=== PATIENT | male | born 1970 | race Caucasian/White ===

== ENCOUNTER → 2017-06-01 | Outpatient (CLI) | payer MEDICARE ==
[2017-06-01 13:33] LABS: Basophils % (A) 1 %; Eosinophils % (A) 1 %; HCT 47.7 % (39.0-53.0); HGB 15.1 gm/dL (13.0-17.5); Lymphocytes # (A) 1.1 k/uL (1.0-4.8); Lymphocytes % (A) 23 %; MCH 28.9 pg (25.0-35.0); MCHC 31.6 g/dL (31.0-37.0); MCV 91.5 fL (80.0-100.0); Mean Platelet Volume 7.5; Monocytes # (A) 0.2 k/uL (0-1.0); Monocytes % (A) 4 %; Neutrophils # (A) 3.6 k/uL (1.3-7.7); Neutrophils % (A) 70 %; Platelet Count 215 k/uL (150-450); RBC 5.21 m/uL (4.30-5.90); RDW 14.2 % (11.5-15.5); WBC 5.1 k/uL (3.8-10.6)
[2017-06-01 13:41] LABS: Potassium 4.8 mmol/L (3.5-5.1)
== END | disposition home or self-care (01) ==
LOC: LABPAT 12:27
PROVIDERS: ATTEND Orthopaedic Surgery
DX: Z01.818 Encounter for other preprocedural examination (principal); Z01.812 Encounter for preprocedural laboratory examination; S43.431D Superior glenoid labrum lesion of right shoulder, subsequent encounter
CPT/HCPCS: 36415; 80051; 85025; 93005

== ENCOUNTER 2017-06-08 07:41 | Day surgery (SDC) | payer MEDICARE, OTHER ==
[2017-05-30 23:30] VITALS: BMI 22.4
--- NOTE | 2017-06-07 10:31 | HP ---
HISTORY AND PHYSICAL CHIEF COMPLAINT: Right shoulder pain. HISTORY OF PRESENT ILLNESS: The patient is a 47-year-old right-hand dominant male on permanent disability who presents after injuring his right shoulder on 01/02/2017. He fell in his backyard, dislocating his shoulder. He notes pain, limited motion, and weakness ever since. He feels like the shoulder is unstable. He denies previous problems. PAST MEDICAL HISTORY: Significant for bipolar disorder. PAST SURGICAL HISTORY: Significant for previous knee surgery. CURRENT MEDICATIONS: Depakote. He has allergies to PENICILLIN and CODEINE. FAMILY HISTORY: Negative. SOCIAL HISTORY: Negative for current tobacco or alcohol use. 16 POINT REVIEW OF SYSTEMS: Otherwise reviewed and is noncontributory. On examination, the patient is approximately 6 foot 2, 175 pounds of mesomorphic habitus. HEENT exam is nonfocal. Neck is supple. On examination of his right shoulder, he is tender about the anterior glenohumeral joint and subacromial space. He has mild subacromial crepitus. Active range of motion, forward elevation 75 degrees, external rotation with arm at side 70 degrees, internal rotation to the buttock. Passively, I am able to forward elevate him to 110 degrees. Impingement test, Neer test, and Speed tests are positive. Apprehension test is positive. Suppression test is positive. Motor strength is 4/5 for external rotation and abduction. His distal neurovascular exam otherwise appears intact in the right upper extremity. MRI report right shoulder 05/01/2017 shows an anterior labral tear along with a Hill- Sachs lesion. There is increased signal involving the supraspinatus insertion. IMPRESSION: 1. Right shoulder anterior labral tear with instability. 2. Possible partial-thickness rotator cuff tear. RECOMMENDATIONS: I talked to the patient at length regarding his condition and treatment options. At this point, he remains quite symptomatic despite adequate rest. After a thorough discussion, he opts to proceed with surgery. We will plan to proceed with arthroscopic evaluation with possible anterior labral repair in addition to possible rotator cuff debridement/repair. We will likely perform that as an outpatient procedure. Risks and benefits were discussed at length in layman's terms. MMODL / IJN: [id number] /
[~2017-06-08 07:41] MED LIST: DEXAMETHASONE SOD PHOSPHATE 10 MG/ML 1 ML VIAL IV ONE; LACTATED RINGERS 1,000 ML IV SCH; MIDAZOLAM 2 MG/2 ML VIAL IV PRN; MORPHINE SULFATE 4 MG/ML SYRINGE IV PRN; ONDANSETRON 4 MG/2 ML VIAL IVP ONE; SCOPOLAMINE 1.5MG/72HR PATCH TRANSDERM ONE; ceFAZolin IN SWFI 2 GM/20 ML SYRINGE IVP ONE
--- NOTE | 2017-06-08 09:23 | P.ONQ ---
Anesthesiology Proc Note - PNB - Peripheral Nerve Block Performed Right Interscalene Indication: Acute Post-Operative Pain, Requested by physician (Dr Mullins) Sedation Type: Sedate with meaningful contact maintained Preparation: Sterile Prep Position: Supine Catheter: None Needle Types: Other (see comment) (Sally) Needle Size: 50mm (2") Needle Gauge: 20 Technique: Ultrasound (14ccd 0.5% Ropivacaine, 14cc Lidocaine 1% with 1:100,000 epi) Blood Aspirated: No Pain Paresthesia on Injection Noted: No Resistance on Injection: Normal Events: Uneventful and Well Tolerated
[2017-06-08] MEDS ORDERED: PROPOFOL 10 MG/ML 20 ML VIAL IV ONE (09:54)
[2017-06-08] MEDS ORDERED: LIDOCAINE 2%-EPI 1:100,000 20 ML VIAL ONE (09:54)
[2017-06-08] MEDS ORDERED: SUCCINYLCHOLINE CHLORIDE 100 MG/5 ML SYR IV ONE (09:54)
[2017-06-08] MEDS ORDERED: fentaNYL (PF) 50 MCG/ML 2 ML AMP ONE (09:54)
[2017-06-08] MEDS ORDERED: ROPIVACAINE 5 MG/ML 30 ML VIAL ONE (09:54)
[2017-06-08] MEDS ORDERED: LIDOCAINE 1% INJ 10MG/ML (20 ML MDV) ONE (09:54)
[2017-06-08] MEDS ORDERED: MIDAZOLAM 2 MG/2 ML VIAL ONE (09:54)
[2017-06-08] MEDS ORDERED: EPINEPHrine (PF) 1 ML in SODIUM CHLORIDE 0.9% IRRIGATIO 3,000 ML IRRIGATION ONE ×8 (10:24→10:25)
--- NOTE | 2017-06-08 11:34 | P.OP ---
Date of Procedure: 06/08/17 Preoperative Diagnosis: Right shoulder instability with recent dislocation Postoperative Diagnosis: Same Procedure(s) Performed: Right shoulder arthroscopic anterior labral repair/rotator cuff debridement Implants: 3 mm push lock anchor 2 Anesthesia: CALLIE regional Surgeon: Sixto Mullins Security Escort #1: Abel Yoon Estimated Blood Loss (ml): 10 Pathology: none sent Condition: stable Disposition: PACU Indications for Procedure: The patient's a 47-year-old male presents after dislocating his shoulder recently with persistent pain and instability. A discussion of the risks and benefits of operative intervention versus continued conservative measures was made with the patient. He opted to proceed with surgery. Operative risks to include infection, neurovascular injury, development of blood clots, possible recurrent instability and need for subsequent procedures was discussed. Informed consent was obtained. Operative Findings: Anterior labral tear 2:00 to 5:00, partial thickness rotator cuff tear of the supraspinatus, Hill-Sachs lesion Description of Procedure: The patient was brought to the operating room, and after induction of general anesthesia was placed in a beachchair position. The bony prominences were appropriately padded. I examined the right shoulder. He did have significant anterior instability. The right upper extremity was prepped and draped in normal fashion. The bony outlines the acromion, distal clavicle, and coracoid process were outlined with a skin marker. The glenohumeral joint was inflated with 50 mL of saline utilizing a spinal needle from posterior approach. A posterior portals made through a 5 mm skin incision 1 cm medial and inferior to the posterior lateral border acromion. A blunt trocar was used to easily into the joint. An anterior portal was made entering the joint above the subscapularis tendon lateral to the coracoid process. The subscapularis appeared to be intact. There was an anterior labral tear from the 2:00 to 5 o' clock position. The posterior labrum was intact. The biceps anchor was intact. There appeared to be a small Hill-Sachs lesion with a small bony fragment involving the supraspinatus. There was a small partial-thickness tear of the supraspinatus as well. The bony fragment was removed with a motorized maddy. The rotator cuff was debrided back to stable base with a motorized shaver. The remaining rotator cuff was stable and intact. Attention was then paid towards the anterior labrum. A threaded cannula was placed anteriorly. The anterior labrum was mobilized with an elevator. The anterior glenoid was decorticated utilizing a motorized bur. A suture passer was then used to pass 2 Arthrex labral tapes planning on a superior capsular shift along with labral repair. 2 drill holes were made in the anterior labrum and the appropriate push lock anchors were placed tensioning the tape. After placement of these I felt I had adequate denominational of the anterior labrum. I did not feel the need for a third anchor. Arthroscope was placed into the subacromial space. No significant rotator cuff pathology was noted. The arthroscope was then removed. The portals were closed with simple 3-0 nylon suture. A sterile dressing was applied in addition to a sling. The patient was awoken from general anesthesia and transferred to recovery room in good condition. Blood loss was estimated at 10 mL. No complications were incurred.
[2017-06-08 11:39] VITALS: TEMP 97.8
[2017-06-08 12:55] VITALS: PULSE 83
[2017-06-08 13:18] VITALS: BP 153/98; RESP 18
== END 2017-06-08 13:47 | disposition home or self-care (01) ==
LOC: OR 07:41
PROVIDERS: ATTEND Orthopaedic Surgery
DX: M75.101 Unspecified rotator cuff tear or rupture of right shoulder, not specified as traumatic (principal); S42.201A Unspecified fracture of upper end of right humerus, initial encounter for closed fracture; F31.9 Bipolar disorder, unspecified; Z88.5 Allergy status to narcotic agent; Z88.0 Allergy status to penicillin; Z79.891 Long term (current) use of opiate analgesic; Z79.899 Other long term (current) drug therapy
CPT/HCPCS: 29827; 64415; C1713 ×3; J2250; J1100; J0690; J2405; J0171; J2001; J3010; J2795; J0330; J2704

== ENCOUNTER → 2017-08-23 | Outpatient (CLI) | payer MEDICARE, OTHER ==
[2017-08-23 11:59] LABS: Basophils % (A) 1 %; Eosinophils # (A) 0.1 k/uL (0-0.7); Eosinophils % (A) 2 %; HCT 48.5 % (39.0-53.0); HGB 15.4 gm/dL (13.0-17.5); Lymphocytes # (A) 1.5 k/uL (1.0-4.8); Lymphocytes % (A) 27 %; MCH 28.6 pg (25.0-35.0); MCHC 31.8 g/dL (31.0-37.0); MCV 90.1 fL (80.0-100.0); Mean Platelet Volume 7.1; Monocytes # (A) 0.3 k/uL (0-1.0); Monocytes % (A) 6 %; Neutrophils # (A) 3.4 k/uL (1.3-7.7); Neutrophils % (A) 63 %; Platelet Count 235 k/uL (150-450); RBC 5.38 m/uL (4.30-5.90); RDW 13.7 % (11.5-15.5); WBC 5.4 k/uL (3.8-10.6)
[2017-08-23 12:19] LABS: Potassium 4.2 mmol/L (3.5-5.1)
== END | disposition home or self-care (01) ==
LOC: LABPAT 11:27
PROVIDERS: ATTEND Orthopaedic Surgery
DX: Z01.812 Encounter for preprocedural laboratory examination (principal); M75.01 Adhesive capsulitis of right shoulder
CPT/HCPCS: 36415; 80051; 85025

== ENCOUNTER 2017-08-31 06:19 | Day surgery (SDC) | payer MEDICARE, OTHER ==
[2017-08-24 10:07] VITALS: BMI 24.6
--- NOTE | 2017-08-30 10:07 | HP ---
HISTORY AND PHYSICAL CHIEF COMPLAINT: Right shoulder pain and stiffness. HISTORY OF PRESENT ILLNESS: The patient is a 47-year-old right-hand dominant male on disability who presents with right shoulder pain and stiffness after undergoing arthroscopic anterior labral repair on June 08, 2017. He did not attend formal therapy as prescribed in the postoperative phase. He notes stiffness and limited range of motion. He also notes night symptoms. PAST MEDICAL HISTORY: Significant for bipolar disorder. PAST SURGICAL HISTORY: Significant for right shoulder arthroscopic anterior labral repair in addition to previous total knee arthroplasty. CURRENT MEDICATIONS: Depakote. ALLERGIES: He has allergies to PENICILLIN and CODEINE. FAMILY HISTORY: Family history is noncontributory. SOCIAL HISTORY: Negative for current tobacco or alcohol use. REVIEW OF SYSTEMS: Sixteen-point review of systems otherwise reviewed and is noncontributory. PHYSICAL EXAMINATION: On examination, the patient is approximately 6 feet 2 inches, 175 pounds of mesomorphic habitus. HEENT exam is nonfocal. Neck is supple. On examination of his right shoulder, there is no warmth or erythema. The previous portals are well healed. He has marked guarding. Passive forward elevation is 80 degrees. External rotation with arm at side is 50 degrees. His distal neurovascular exam appears intact in the right upper extremity. MRI report of the right shoulder shows evidence of biceps tendinosis. The anterior labrum appears to be intact. The previous Hill-Sachs deformity is noted. IMPRESSION: Status post right shoulder arthroscopic Bankart repair with development of adhesive capsulitis/synovitis. RECOMMENDATIONS: I talked to the patient at length regarding his treatment options. At this point, he opts to proceed with manipulation under anesthesia with possible arthroscopic debridement. Risks and benefits were discussed at length in layman's terms. We will likely perform that as an outpatient procedure. MMODL / IJN: [id number] /
[~2017-08-31 06:19] MED LIST changes: +HYDROmorphone 0.5 MG/0.5 ML SYRINGE IVP PRN; +LIDOCAINE 1% 20 ML VIAL (10MG/ML) FOR IV START INTRADERMA PRN; +MORPHINE SULFATE 2 MG/ML SYRINGE IV PRN; -MORPHINE SULFATE 4 MG/ML SYRINGE IV PRN
[2017-08-31] MEDS ORDERED: fentaNYL (PF) 50 MCG/ML 2 ML AMP IV ONE (07:21)
[2017-08-31] MEDS ORDERED: METOPROLOL TARTRATE 5 MG/5 ML VIAL IVP ONE (07:34)
[2017-08-31] MEDS ORDERED: PHENYLEPHRINE-0.9% NACL SYG 1 MG/10 ML SYRINGE ONE (08:12)
[2017-08-31] MEDS ORDERED: LIDOCAINE 2%-EPI 1:100,000 20 ML VIAL ONE (08:12)
[2017-08-31] MEDS ORDERED: LIDOCAINE 1% INJ 10MG/ML (20 ML MDV) ONE (08:12)
[2017-08-31] MEDS ORDERED: ROPIVACAINE 5 MG/ML 30 ML VIAL ONE (08:12)
[2017-08-31] MEDS ORDERED: KETOROLAC 30 MG/ML 1 ML VIAL ONE (08:12)
[2017-08-31] MEDS ORDERED: SUCCINYLCHOLINE CHLORIDE 100 MG/5 ML SYR IV ONE (08:12)
[2017-08-31] MEDS ORDERED: PROPOFOL 10 MG/ML 20 ML VIAL IV ONE (08:12)
[2017-08-31] MEDS ORDERED: fentaNYL (PF) 50 MCG/ML 2 ML AMP ONE (08:12)
--- NOTE | 2017-08-31 09:05 | P.OP ---
Date of Procedure: 08/31/17 Preoperative Diagnosis: Right shoulder adhesive capsulitis/synovitis status post arthroscopic Bankart repair Postoperative Diagnosis: Same Procedure(s) Performed: Manipulation under anesthesia right shoulder/arthroscopic partial synovectomy Anesthesia: abdelrahman LEDESMA Surgeon: Sixto Mullins Cloth Bin Packer #1: Abel Yoon Estimated Blood Loss (ml): 10 Pathology: none sent Condition: stable Disposition: PACU Indications for Procedure: The patient's a 47-year-old male who presents after undergoing previous arthroscopic Bankart repair with persistent pain and stiffness in his right shoulder. He did not comply with postoperative rehabilitation and did not go to therapy. A discussion of the risks and benefits of manipulation under anesthesia with arthroscopic evaluation was made with the patient. He opted to proceed with surgery. Operative risks to include infection, neurovascular injury, development of blood clots, persistence of stiffness and possible need for subsequent procedures was discussed. Informed consent was obtained. Operative Findings: As below Description of Procedure: Patient was brought to the operating room, and after induction of general anesthesia was placed in a beachchair position. The bony prominences were appropriately padded. I examined the right shoulder. I was able to externally rotate with the arm at side to 60. Forward flexion was somewhat limited and a moderate amount of adhesions were encountered during the gentle manipulation before obtaining full forward elevation. No gross glenohumeral instability was noted. The right upper extremity was then prepped and draped in normal fashion. The glenohumeral joint was inflated with 50 mL of saline utilizing a spinal needle from a posterior approach. A posterior portal was made through a 5 mm skin incision 1 cm medial and inferior to the posterior lateral border of the acromion. Diagnostic arthroscopy was performed. An anterior portal was made just lateral to the coracoid process entering the joint above the subscapularis tendon. He did have marked synovitis involving the rotator interval there was debrided with motorized shaver. The biceps and the biceps anchor appeared to be intact. The rotator cuff appeared to be intact on the articular surface. There was a Hill-Sachs lesion involving the greater tuberosity. This did not appear to engage. On inspection of the anterior labrum, the previous repair appeared to be intact. No significant cartilage injury involving humeral head or glenoid was noted. The posterior labrum was intact. The inferior recess was inspected. The posterior portion the rotator cuff appeared to be intact. The arthroscope was placed into the subacromial space. The rotator cuff appeared intact on the bursal surface. The arthroscope was then removed. The portals were closed with simple 4-0 nylon sutures. A sterile dressing was applied in addition to a sling. The patient was awoken from general anesthesia and transferred to recovery room in good condition. Blood loss was estimated 10 mL. No complications were incurred. Sponge and needle counts were correct at the end of the case.
[2017-08-31] MEDS ORDERED: IV FLUID CONTINUATION 1,000 ML IV ONE ×2 (09:17)
[2017-08-31 09:29] VITALS: TEMP 97.3
[2017-08-31] MEDS ORDERED: hydrALAZINE HCL 20 MG/ML 1 ML VIAL IVP ONE ×2 (09:48→10:18)
[2017-08-31 10:20] VITALS: RESP 18
[2017-08-31 11:04] VITALS: BP 146/89; PULSE 70
--- NOTE | 2017-09-01 11:34 | P.ONQ ---
Anesthesiology Proc Note - PNB - Peripheral Nerve Block Performed Right Interscalene Single Time Out Performed: Yes Procedure Start Time: : Procedure Stop Time: : Indication: Acute Post-Operative Pain, Requested by physician Sedation Type: Sedate with meaningful contact maintained Preparation: Sterile Prep Position: Supine Needle Gauge: 21 Technique: Ultrasound Injectate: 0.5% Ropivacaine (see comment for volume) (ropi .5% 30cc) Blood Aspirated: No Pain Paresthesia on Injection Noted: No Resistance on Injection: Normal Events: Uneventful and Well Tolerated
== END 2017-08-31 11:04 | disposition home or self-care (01) ==
LOC: OR 06:19
PROVIDERS: ATTEND Orthopaedic Surgery
DX: M75.01 Adhesive capsulitis of right shoulder (principal); Z98.890 Other specified postprocedural states; F31.9 Bipolar disorder, unspecified; Z79.891 Long term (current) use of opiate analgesic; Z79.899 Other long term (current) drug therapy; Z88.5 Allergy status to narcotic agent; Z88.0 Allergy status to penicillin; F17.220 Nicotine dependence, chewing tobacco, uncomplicated
CPT/HCPCS: 64415; 29820; J2250; J0360; J1100; J2405; J2001; J3010; J1885; J2795; J2370; J0330; J2704; J0690

== ENCOUNTER → 2022-02-24 | Outpatient (CLI) | payer MEDICARE, OTHER | END | disposition home or self-care (01) | LOC: LABWHC1 10:41 | PROVIDERS: ATTEND Psychiatry & Neurology Neurology | DX: Z01.812 Encounter for preprocedural laboratory examination (principal); Z20.822 Contact with and (suspected) exposure to COVID-19 | CPT/HCPCS: U0003; U0005 ==

== ENCOUNTER → 2022-05-02 | Outpatient (CLI) | payer MEDICARE, OTHER | END | disposition home or self-care (01) | LOC: LABWHC1 16:17 | PROVIDERS: ATTEND Internal Medicine | DX: Z01.818 Encounter for other preprocedural examination (principal); R94.31 Abnormal electrocardiogram [ECG] [EKG] | CPT/HCPCS: 36415; 93005 ==

== ENCOUNTER → 2022-06-07 | Outpatient (CLI) | payer MEDICARE, OTHER ==
[2022-06-07 19:49] LABS: ALT 40 U/L (10-49); AST 24 U/L (14-35); African American GFR (CKD) 116.1 (60.0-200.0); Albumin 4.6 g/dL (3.8-4.9); Albumin/Globulin Ratio 1.74 (1.60-3.17); Alkaline Phosphatase 77 U/L (41-126); BUN/Creat Ratio 10.14 Ratio (12.00-20.00); Blood Urea Nitrogen 8.5 mg/dL (9.0-27.0); Calcium 9.8 mg/dL (8.7-10.3); Carbon Dioxide 24.8 mmol/L (20.0-27.5); Chloride 99 mmol/L (96-109); Globulin 2.7 g/dL (1.6-3.3); Glucose 96 mg/dL (70-110); Non-African American GFR(CKD) 100.2 (60.0-200.0); Potassium 4.5 mmol/L (3.5-5.5); Sodium 137 mmol/L (135-145); Total Bilirubin <0.15 mg/dL (0.30-1.20); Total Protein 7.3 g/dL (6.2-8.2)
[2022-06-07 20:15] LABS: HCT 46.3 % (39.6-50.0); HGB 14.8 g/dL (13.0-17.0); MCH 29.3 pg (27.0-32.0); MCV 91.7 fL (80.0-97.0); NRBC Per 100 WBC 0 /100 WBCS (0.0-0.0); Platelet Count 210 X 10*3/uL (140-440); RBC 5.05 X 10*6/uL (4.40-5.60); RDW 13.1 % (11.5-14.5); WBC 6.39 X 10*3/uL (4.50-10.00)
[2022-06-07 21:35] LABS: Appearance,Urine Clear (Clear); Bilirubin,Urine Negative (Negative); Blood,Urine Negative (Negative); Color,Urine Yellow (Yellow); Ketones,Urine Trace mg/dL (Negative); Nitrite,Urine Negative (Negative); PH, Urine 6.5 (5.0-8.0); Specific Gravity,Urine 1.019 (1.001-1.030); Urobilinogen,Urine 0.2 (0.2,1.0)
== END | disposition home or self-care (01) ==
LOC: LABWHC1 12:33
PROVIDERS: ATTEND Orthopaedic Surgery
DX: M22.8X9 Other disorders of patella, unspecified knee (principal); Z96.651 Presence of right artificial knee joint
CPT/HCPCS: 36415; 80053; 81003; 83036; 85027; 86850; 86900; 86901; 87070; 87086

== ENCOUNTER → 2023-08-09 | Outpatient (CLI) | payer MEDICARE | END | disposition home or self-care (01) | LOC: LABPAT 11:02 | PROVIDERS: ATTEND Orthopaedic Surgery | DX: Z01.812 Encounter for preprocedural laboratory examination (principal); Z22.322 Carrier or suspected carrier of Methicillin resistant Staphylococcus aureus; M19.011 Primary osteoarthritis, right shoulder | CPT/HCPCS: 87070 ==

== ENCOUNTER 2023-09-04 08:29 | Day surgery (SDC) | payer MEDICARE ==
--- NOTE | 2023-09-03 08:49 | P.HPOR ---
History of Present Illness H&P Date: 09/03/23 Chief Complaint: Right shoulder pain The patient is a 53-year-old [id number] male who presents with right shoulder pain for the past several years worsening recently. He is having a difficult time with any attempted overhead use. He is having significant night symptoms. He's tried medications in addition to injections without much relief. He notes severe daily pain that limits him. He has a history of a little right shoulder arthroscopy in 2018. Review of Systems As per HPI Past Medical History Past Medical History: Hypertension, Osteoarthritis (OA) Additional Past Medical History / Comment(s): RLS, rt shoulder pain, History of Any Multi-Drug Resistant Organisms: None Reported Past Surgical History: Adenoidectomy, Joint Replacement, Orthopedic Surgery, Tonsillectomy Additional Past Surgical History / Comment(s): right knee replaced x 3. RT SHOULDER SX 05/2017 Past Anesthesia/Blood Transfusion Reactions: No Reported Reaction Smoking Status: Never smoker - Past Family History Mother Family Medical History: No Reported History Father Family Medical History: Coronary Artery Disease (CAD) Brother(s) Additional Family Medical History / Comment(s): Pacemaker Sister(s) Additional Family Medical History / Comment(s): pacemaker Medications and Allergies Home Medications Medication Instructions Recorded Confirmed Type Divalproex Sodium [Depakote] 1,500 mg PO HS 05/30/17 08/30/23 History Desmopressin [Ddavp] 0.2 mg PO HS 08/30/23 08/30/23 History QUEtiapine [SEROquel] 200 mg PO HS 08/30/23 08/30/23 History amLODIPine BESYLATE/BENAZEPRIL 1 each PO HS 08/30/23 08/30/23 History [Amlodipine-Benazepril 5-10 mg] oxyCODONE-APAP 10-325MG [Percocet 1 tab PO Q8HR PRN 08/30/23 08/30/23 History 10-325 mg] rOPINIRole HCL [Requip XL] 2 mg PO HS 08/30/23 08/30/23 History Allergies Allergy/AdvReac Type Severity Reaction Status Date / Time codeine Allergy jittery Verified 08/30/23 14:31 Penicillins Allergy turns Verified 08/30/23 14:31 teeth yellow Physical Examination - Shoulder right Appearance: effusion Tenderness with palpation: anterior, bicipital groove Pain: with abduction, with forward flexion ROM: forward flexion: 40 degrees ROM: internal rotation: 0 ROM: external rotation: 30 degrees Tests: internal impingement tests: positive, external impingment tests: positive Results The patient is a well-developed well-nourished male approximately 6 foot 2, 220 pounds of mesomorphic habitus. HEENT exam is nonfocal, neck supple. He has marked guarding of the right shoulder. He has moderate subacromial crepitus. Impingement test, Neer test, and speed tests are positive. His distal neurovascular exam appears intact in the right upper shoulder. - Diagnostic results Shoulder x-ray: image reviewed (3 views of the right shoulder obtained in the office show severe glenohumeral joint space narrowing. Previous Hill-Sachs deformity is noted.) Assessment and Plan Assessment: Right severe glenohumeral joint osteoarthrosis Plan: I talked with the patient at length regarding his condition along with treatment options. At this point is quite limited because of pain related his right shoulder osteoarthrosis despite previous conservative measures. After a thorough discussion he opts to proceed with surgery. We'll plan to proceed with right total shoulder arthroplasty. Risks and benefits were discussed at length in layman's terms.
[~2023-09-04 08:29] MED LIST changes: -DEXAMETHASONE SOD PHOSPHATE 10 MG/ML 1 ML VIAL IV ONE; -LACTATED RINGERS 1,000 ML IV SCH; -LIDOCAINE 1% 20 ML VIAL (10MG/ML) FOR IV START INTRADERMA PRN; -MIDAZOLAM 2 MG/2 ML VIAL IV PRN; -MORPHINE SULFATE 2 MG/ML SYRINGE IV PRN; -ONDANSETRON 4 MG/2 ML VIAL IVP ONE; -SCOPOLAMINE 1.5MG/72HR PATCH TRANSDERM ONE; +TRANEXAMIC 1,000 MG/100ML-NACL 1,000 MG in SALINE 1 100ML.BAG IVPB PRN; -ceFAZolin IN SWFI 2 GM/20 ML SYRINGE IVP ONE
[2023-09-04] MEDS: MELOXICAM 7.5 MG TAB PO PRN (09:25)
[2023-09-04] MEDS: ACETAMINOPHEN TAB 500 MG TAB PO PRN (09:25)
[2023-09-04] MEDS: ONDANSETRON 4 MG/2 ML VIAL IVP ONE (09:25)
[2023-09-04] MEDS: DEXAMETHASONE SOD PHOSPHATE 4 MG/ML 1 ML VIAL IV ONE (09:25)
[2023-09-04] MEDS: LACTATED RINGERS 1,000 ML IV ONE ×3 (09:30→15:58)
[2023-09-04] MEDS: MIDAZOLAM 2 MG/2 ML VIAL IVP ONE (09:33)
--- NOTE | 2023-09-04 09:48 | P.ANPRN ---
Procedure Note - Anesthesia - Nerve Block Performed Right Interscalene Single Time Out Performed: Yes Date of Procedure: 09/04/23 Procedure Start Time: :32 Procedure Stop Time: :40 Location of Patient: PreOp Indication: Acute Post-Operative Pain, Analgesia, Requested by Surgeon Sedation Type: Sedate with meaningful contact maintained Preparation: Sterile Prep Position: Sitting Catheter: None Needle Types: Pajunk Needle Gauge: 21 Ultrasound used to visualize needle placement: Yes Ultrasound used to observe medication spread: Yes Injectate: 0.5% Ropivacaine (see comment for volume) (Ropiv 20ml +decadron 4mg) Blood Aspirated: No Pain Paresthesia on Injection Noted: No Resistance on Injection: Normal Image Stored and Saved: Yes Events: Uneventful and Well Tolerated
[2023-09-04] MEDS ORDERED: TRANEXAMIC 1,000 MG/100ML-NACL PREMIX BAG ONE (12:40)
[2023-09-04] MEDS ORDERED: fentaNYL (PF) 50 MCG/ML 2 ML AMP ONE (12:40)
[2023-09-04] MEDS ORDERED: GLYCOPYRROLATE 0.2 MG/ML 2 ML VIAL ONE (12:40)
[2023-09-04] MEDS ORDERED: SUCCINYLCHOLINE CHLORIDE 200 MG/10 ML VIAL IV ONE (12:40)
[2023-09-04] MEDS ORDERED: PROPOFOL 10 MG/ML 20 ML VIAL IV ONE (12:40)
[2023-09-04] MEDS ORDERED: NEOSTIGMINE 1 MG/ML 10 ML VIAL ONE (12:40)
[2023-09-04] MEDS ORDERED: PHENYLEPHRINE 10 MG/ML VIAL ONE (12:40)
[2023-09-04] MEDS ORDERED: ROPIVACAINE 5 MG/ML 30 ML VIAL ONE (12:40)
[2023-09-04] MEDS ORDERED: DEXAMETHASONE SOD PHOSPHATE 4 MG/ML 1 ML VIAL ONE (12:40)
[2023-09-04] MEDS ORDERED: ROCURONIUM 10 MG/ML (5 ML VIAL) IV ONE (12:40)
[2023-09-04] MEDS: ceFAZolin 1,000 MG in SODIUM CHLORIDE 0.9% 1,000 ML IRRIGATION ONE (13:13)
[2023-09-04] MEDS ORDERED: HYDROmorphone 0.5 MG/0.5 ML SYRINGE IVP PRN (14:47)
[2023-09-04] MEDS ORDERED: hydrOXYzine pamoate 25 MG CAP PO PRN (14:47)
[2023-09-04] MEDS ORDERED: SENNOSIDES-DOCUSATE SODIUM 1 EACH TAB PO PRN (14:47)
[2023-09-04] MEDS ORDERED: HYDROmorphone 1 MG/ML 1 ML SYRINGE IVP PRN (14:47)
[2023-09-04] MEDS: LACTATED RINGERS 1,000 ML IV SCH (15:03)
--- NOTE | 2023-09-04 15:03 | P.OP ---
Date of Procedure: 09/04/23 Preoperative Diagnosis: Right severe glenohumeral joint osteoarthrosis Postoperative Diagnosis: Same Procedure(s) Performed: Right total shoulder arthroplasty Implants: [employer] size 10 press-fit humeral stem, size 10 metaphysis, 52 x 18 eccentric humeral head, 48 mm cemented central peg glenoid component. Anesthesia: abdelrahman LEDESMA Surgeon: Sixto Mullins Docketing Specialist #1: Rob Yadav Estimated Blood Loss (ml): 150 Pathology: none sent Condition: stable Disposition: PACU Indications for Procedure: The patient's a 53-year-old male presents with progressive right shoulder pain secondary to osteoarthrosis despite conservative measures. Risks and benefits of continued conservative measures versus operative intervention was made with patient. He opted to proceed with surgery. Operative risks to include infection, neurovascular injury, fracture, possible component loosening/failure and need for subsequent procedures was discussed. Informed consent was obtained. Operative Findings: As below Description of Procedure: The patient was brought to the operating room, and after induction of general anesthesia was placed in the beachchair position. The bony prominences were appropriately padded. The right upper extremity was prepped and draped in normal fashion. A deltopectoral incision was then made lateral to the coracoid process extending approximately 12 cm. The skin was incised sharply. Subcutaneous tissues were divided bluntly. Electrocautery was used for hemostasis. The deltopectoral interval was identified and the cephalic vein gently retracted laterally with the deltoid. Subdeltoid adhesions were bluntly dissected. A self-retaining retractor was placed. The clavipectoral fascia was opened and the conjoined tendon gently retracted medially. The upper one third of the pectoralis major was released to help facilitate exposure. The biceps was identified and the sheath was opened. The rotator interval was opened. The biceps was tenotomized and allowed to retract distally. The subscapularis was peeled off the lesser tuberosity and tagged with #2 Ethibond suture. The humeral head was then exposed releasing the capsule off the humeral neck. The shoulder was gently dislocated. A starting hole was made in the head in line with the humeral shaft. The shaft was reamed by hand up to 10 mm. There is good distal chatter. The cutting guide was placed planning on a cut flush with the rotator cuff insertion and 30 of retroversion. The cutting block was pinned in place. The humeral head cut was then made. This measured most appropriately at 52 x 18 mm. Residual inferior osteophytes were carefully removed flush with the mohegan cortical bone. A posterior glenoid retractor was placed. The glenoid was then exposed releasing the labrum from the [] o'clock position. Residual labral tissue was removed. The glenoid sized most appropriate 48 mm. A guidewire was then inserted planning on the appropriate version. The glenoid was reamed down to a bleeding bony surface. The central Peg hole was drilled. The alignment guide was placed in the peripheral peg holes drilled. The trial size 48 mm glenoid was placed and was fully seated. There was good anterior to posterior and inferior to superior fit. The trial component was removed. Pulsatile lavage was utilized. The bony surface was dried. The peripheral peg holes were then pressurized with cement utilizing a syringe. Excess cement was removed. A central peg glenoid was then placed and was fully seated. This was gently impacted. This was held in place until the cement had sufficiently hardened. Attention was then paid again towards preparing the proximal humerus. The appropriate broach was placed in 30 of retroversion and was fully seated. An eccentric 52 x 18 mm humeral head was placed. The shoulder was gently reduced. It was taken through a range of motion. It was felt to be stable in flexion and extension with internal and external rotation. I felt there was adequate oriental orthodox of soft tissue tension. The shoulder was gently dislocated. The trial components were then removed. A #2 Ethibond was placed laterally for reattachment of the subscapularis. The humeral stem was inserted in 30 of retroversion and was fully seated. There was good rotational stability. The eccentric 52 x 18mm humeral head was gently impacted. The shoulder was then gently reduced and taken through range of motion and was felt to be stable. Pulsatile lavage was utilized. Lesser tuberosity was reattached utilizing #2 Ethibond suture. The rotator interval was closed with #2 Ethibond suture. He had minimal drainage at this point therefore a deep drain was not placed. The deltopectoral interval was closed with interrupted 2-0 Vicryl sutures. The subcu tissues were reapproximated with interrupted 2-0 Vicryl sutures. The skin was reprepped with 3-0 subcuticular Prolene suture. Steri-Strips were applied. A sterile dressing was applied in addition to a sling. The patient was then awoken from general anesthesia and transferred to recovery room in good condition. Blood loss was estimated at 150 mL. No complications were incurred. Sponge and needle counts were correct at the end the case. Rob BARAJAS Docketing Specialist. The major composite case to include positioning, exposure, resection, implantation, and closure.
--- NOTE | 2023-09-04 15:33 | XR ---
EXAMINATION TYPE: XR shoulder limited RT DATE OF EXAM: 09/04/2023 COMPARISON: None HISTORY: Right shoulder arthroplasty TECHNIQUE: AP right shoulder FINDINGS: There is placement of a right humeral prosthesis. Acromioclavicular joint has mild degenera tive change. No acute fractures or dislocations of the shoulder. IMPRESSION: 1. No acute fracture post replacement
[2023-09-04] MEDS: oxyCODONE-APAP 10-325MG 1 EACH TAB PO PRN (16:57)
[2023-09-04] MEDS: CYCLOBENZAPRINE 5 MG TAB PO SCH (16:59)
[2023-09-04 17:15] LABS: Basophils % (A) 0 %; Eosinophils % (A) 0 %; HCT 42.8 % (39.0-53.0); HGB 13.2 gm/dL (13.0-17.5); Lymphocytes # (A) 0.7 k/uL (1.0-4.8); Lymphocytes % (A) 6 %; MCH 29.2 pg (25.0-35.0); MCHC 30.9 g/dL (31.0-37.0); MCV 94.6 fL (80.0-100.0); Mean Platelet Volume 7.7; Monocytes # (A) 0.3 k/uL (0-1.0); Monocytes % (A) 2 %; Neutrophils # (A) 10.2 k/uL (1.3-7.7); Neutrophils % (A) 91 %; Platelet Count 198 k/uL (150-450); RBC 4.52 m/uL (4.30-5.90); RDW 13.2 % (11.5-15.5); WBC 11.2 k/uL (3.8-10.6)
[2023-09-04] MEDS ORDERED: NON FORMULARY DRUG (Amlodipine Besylate/Benazepril [Amlodipine Besylate/Benazepril 5-10 Mg PO SCH (21:00)
--- NOTE | 2023-09-04 21:24 | P.CONS ---
History of Present Illness - Reason for Consult Consult date: 09/04/23 Medical management Requesting physician: Sixto Mullins - Chief Complaint Right shoulder surgery - History of Present Illness This is a pleasant 53-year-old patient who follows with Dr. Emeli Alvarez. Chronic stable medical condition include hypertension, restless leg syndrome, osteoarthritis, enuresis for which she takes DDAVP, Depakote for bipolar and Seroquel for insomnia. Patient has undergone repeat right total shoulder arthroplasty. Prior surgery was about 5 years ago. Postprocedure right arm in a sling. Pain is controlled. No nausea vomiting did tolerate some supper. Denies any cardiac history. Patient's fianc is in the room. Sitting up in bed. Review of systems: GEN.: None EYES: None HEENT: None NECK: None RESPIRATORY: None CARDIOVASCULAR: None GASTROINTESTINAL: None GENITOURINARY: None MUSCULOSKELETAL: [Joint pain LYMPHATICS: None HEMATOLOGICAL: None PSYCHIATRY: None NEUROLOGICAL: Nocturnal bedwetting e Social history: Lives with his figomez Avila. Patient is on Social Security. Just to tobacco and does marijuana. Physical examination: VITAL SIGNS: 98, 105, 20, 132 x 85, 96% room air GENERAL: BMI 26.4, sitting bed awake not in distress. EYES: Pupils equal. Conjunctiva celeste l. HEENT: External appearance of nose and ears normal, oral cavity grossly normal. NECK: JVD not raised; masses not palpable. HEART: First and second heart sounds are normal; no edema. LUNGS: Respiratory rate normal; clear to auscultation. ABDOMEN: Soft, nontender, liver spleen not palpable, no masses palpable. PSYCH: Alert and oriented x3; mood and affect celeste l. MUSCULOSKELETAL:No Clubbing/cyanosis;muscles-grossly intact. Right arm in a sling. Dressing on the right shoulder NEUROLOGICAL: Cranial nerves grossly intact; no facial asymmetry, power and sensation grossly intact. LYMPHATICS: No lymph nodes palpable in the axilla and neck INVESTIGATIONS, reviewed in the clinical context: September 04, 2023: White count 9.2 hemoglobin 13.2 platelets 198 June 07, 2021: White count 6.3 hemoglobin 14.8 potassium 4.5 creatinine 0.8 Assessment plan: -Right total shoulder arthroplasty Right arm in a sling -Restless leg syndrome Requip XL 2 mg nightly -Essential hypertension Amlodipine/benazepril/5-ten 1 tablet nightly -Chronic insomnia Seroquel 12 mg nightly -Bipolar disorder Depakote 1500 mg nightly -enuresis DDAVP 0.2 mg nightly Was discussed with the patient and the fianc at the bedside. Questions answ ered. Thank you Dr. Mullins Past Medical History Past Medical History: Hypertension, Osteoarthritis (OA) Additional Past Medical History / Comment(s): RLS, rt shoulder pain, History of Any Multi-Drug Resistant Organisms: None Reported Past Surgical History: Adenoidectomy, Joint Replacement, Orthopedic Surgery, Tonsillectomy Additional Past Surgical History / Comment(s): right knee replaced x 3. RT SHOULDER SX 05/2017 Past Anesthesia/Blood Transfusion Reactions: No Reported Reaction Past Psychological History: Bipolar Smoking Status: Never smoker Past Alcohol Use History: Occasional Additional Past Alcohol Use History / Comment(s): DOES NOT SMOKE -chewS tobacco FOR 25 years- Past Drug Use History: Marijuana Additional Drug Use History / Comment(s): smokes marijauna. pt aware not to use 24 hrs before procedure - Past Family History Mother Family Medical History: No Reported History Father Family Medical History: Coronary Artery Disease (CAD) Brother(s) Additional Family Medical History / Comment(s): Pacemaker Sister(s) Additional Family Medical History / Comment(s): pacemaker Medications and Allergies Home Medications Medication Instructions Recorded Confirmed Type Divalproex Sodium [Depakote] 1,500 mg PO HS 05/30/17 09/04/23 History Desmopressin [Ddavp] 0.2 mg PO HS 08/30/23 09/04/23 History QUEtiapine [SEROquel] 200 mg PO HS 08/30/23 09/04/23 History amLODIPine BESYLATE/BENAZEPRIL 1 each PO HS 08/30/23 09/04/23 History [Amlodipine-Benazepril 5-10 mg] oxyCODONE-APAP 10-325MG [Percocet 1 tab PO Q8HR PRN 08/30/23 08/30/23 History 10-325 mg] rOPINIRole HCL [Requip XL] 2 mg PO HS 08/30/23 09/04/23 History Allergies Allergy/AdvReac Type Severity Reaction Status Date / Time codeine Allergy jittery Verified 04/09/24 09:00 Penicillins Allergy turns Verified 09/04/23 09:00 teeth yellow Physical Exam Vitals: Vital Signs Temp Pulse Pulse Pulse Pulse Resp BP 09/04/23 19:07 98.0 F 105 H 20 09/04/23 18:17 110 H 09/04/23 17:46 91 09/04/23 17:32 93 09/04/23 17:17 91 09/04/23 17:01 81 09/04/23 16:47 91 09/04/23 16:17 97.5 F L 77 18 09/04/23 15:46 75 16 130/80 09/04/23 15:31 92 16 137/82 09/04/23 15:16 91 16 140/85 09/04/23 15:03 98 F 106 H 16 134/92 09/04/23 09:46 87 14 150/87 09/04/23 09:06 98.7 F 99 17 155/96 BP Pulse Ox 09/04/23 19:07 132/85 96 09/04/23 18:17 172/92 98 09/04/23 17:46 155/88 97 09/04/23 17:32 147/91 93 L 09/04/23 17:17 131/85 90 L 09/04/23 17:01 133/75 98 09/04/23 16:47 155/88 97 09/04/23 16:17 146/79 97 09/04/23 15:46 94 L 09/04/23 15:31 94 L 09/04/23 15:16 94 L 09/04/23 15:03 94 L 09/04/23 09:46 98 09/04/23 09:06 98 Intake and Output 09/04/23 09/04/23 09/04/23 06:59 14:59 22:59 Intake Total 1451 880 Output Total 150 Balance 1301 880 Intake: IV 1451 400 Oral 480 Output: Estimated Blood Loss 150 Other: Voiding Method Toilet Urinal Weight 93.3 kg 93.3 kg Results CBC & Chem 7: 09/04/23 16:44 Labs: Abnormal Lab Results - Last 24 Hours (Table) 09/04/23 Range/Units 16:44 WBC 11.2 H (3.8-10.6) k/uL MCHC 30.9 L (31.0-37.0) g/dL Neutrophils # 10.2 H (1.3-7.7) k/uL Lymphocytes # 0.7 L (1.0-4.8) k/uL
[2023-09-04] MEDS: amLODIPine 5 MG TAB PO SCH (21:35)
[2023-09-04] MEDS: DIVALPROEX 500 MG TABLET.DR PO SCH (21:35)
[2023-09-04] MEDS: ASPIRIN 81 MG PO SCH (21:35)
[2023-09-04] MEDS: lisinopriL 10 MG TAB PO SCH (21:36)
[2023-09-04] MEDS: DESMOPRESSIN 0.2 MG TAB PO SCH (22:12)
[2023-09-04] MEDS: QUEtiapine 200 MG TAB PO SCH (22:12)
[2023-09-05 07:22] VITALS: BP 117/70; PULSE 86; RESP 18; TEMP 97.9
--- NOTE | 2023-09-05 11:55 | P.DS ---
Providers Date of admission: 09/04/2023 Expected date of discharge: 09/05/23 Attending physician: Sixto Mullins Consults: 09/04/23 14:47 Consult Physician Routine Consulting Provider: Jericho Joseph Consult Reason/Comments: medical management s/p right total shoulder arthroplasty Do you want consulting provider notified?: Yes Primary care physician: Emeli Alvarez MD Hospital Course: Date of admission: 09/04/2023 Date of discharge: 09/05/2023 Admission diagnosis: Right severe glenohumeral joint osteoarthrosis Discharge diagnosis: Same Attending physician: Dr. Mullins Surgical procedures: Right total shoulder arthroplasty Brief history: Patient is a 53-year-old male with a history of right severe glenohumeral joint osteoarthrosis. At this point patient has failed conservative treatment measures and has opted to proceed with a elective right total shoulder arthroplasty. Hospital course: Details of patient's surgery can be found in operative report. Patient tolerated the procedure well and was subsequently transported to orthopedic floor. Patient's orthopeidc and medical care was provided daily. Patient had daily laboratory tests performed for evaluation of overall blood counts. Patient had daily physical therapy to include strengthening range of motion as well as education with walker ambulation. Patient was treated with aspirin for their postoperative DVT prophylaxis during their inpatient stay. Patient was noted to have a relatively uneventful postoperative course. Patient reported satisfactory pain control with oral pain medications by postoperative day 1. Patient showed satisfactory progress with physical therapy. Patient moved steadily through the program and had no difficulty meeting the goals by postoperative day 1. Given patient's otherwise satisfactory course and having met physical therapy goals, plan is to discharge patient home on postoperative day 1. Discharge condition/disposition: Patient will be discharged home in stable condition. Discharge medications: Instructions are given on resumption of patient's normal daily medications per primary care recommendation, in addition patient will be prescribed oxycodone; senna; aspirin; Flexeril. Orthopedic Discharge Instructions: 1. Wound care and infection precautions, keep incision dry and covered while showering, no lotions, creams, moisturizers. No soaking, pools, hot tubs. Do not scrub over incision. 2. Non-weight bearing right upper extremity 3. Ice when necessary. Do not exceed 20 minutes per hour with ice pack. 4. Maintain sling to right upper extremity until seen at first follow up appointment. 5. Pain meds and anticoagulants per prescription. 6. Pain medication has potential to cause constipation. Increase oral fluid and fiber intake. Contact primary care provider if you have not had a bowel movement within 48 hours after discharge. 7. No anti-inflammatory medication until discussed at first post operative visit, this including Motrin, Aleve, Mobic, Diclofenac. 8. Follow up in office at 2 weeks postop with Sanjay Yoon PA-C / Rob Yadav PA-C 9. Follow up with your primary care doctor 7-10 days after discharge. 10. Contact [facility] with any questions, . keep incision clean, dry, intact. While showering, cover steri-strips with Saran wrap. Keep steri-strips on until follow-up appointment in 2 weeks Assessment: Right severe glenohumeral joint osteoarthrosis Procedures: Right total shoulder arthroplasty Patient Condition at Discharge: Good Plan - Discharge Summary Discharge Rx Participant: No New Discharge Prescriptions: No Action Divalproex Sodium [Depakote] 1,500 mg PO HS rOPINIRole HCL [Requip XL] 2 mg PO HS amLODIPine BESYLATE/BENAZEPRIL [Amlodipine-Benazepril 5-10 mg] 1 each PO HS QUEtiapine [SEROquel] 200 mg PO HS oxyCODONE-APAP 10-325MG [Percocet 10-325 mg] 1 tab PO Q8HR PRN PRN Reason: Pain Desmopressin [Ddavp] 0.2 mg PO HS Discharge Medication List Divalproex Sodium [Depakote] 1,500 mg PO HS 05/30/17 [History] Desmopressin [Ddavp] 0.2 mg PO HS 08/30/23 [History] QUEtiapine [SEROquel] 200 mg PO HS 08/30/23 [History] amLODIPine BESYLATE/BENAZEPRIL [Amlodipine-Benazepril 5-10 mg] 1 each PO HS 08/30/23 [History] oxyCODONE-APAP 10-325MG [Percocet 10-325 mg] 1 tab PO Q8HR PRN 08/30/23 [History] rOPINIRole HCL [Requip XL] 2 mg PO HS 08/30/23 [History] Follow up Appointment(s)/Referral(s): Rob Yadav, YOLANDA [PHYSICIAN RN ON SITE] - 2 Weeks Patient Instructions/Handouts: Shoulder Arthroplasty (DC), Shoulder Arthr oplasty (GEN) Activity/Diet/Wound Care/Special Instructions: Orthopedic Discharge Instructions: 1. Wound care and infection precautions, keep incision dry and covered while showering, no lotions, creams, moisturizers. No soaking, pools, hot tubs. Do not scrub over incision. 2. Non-weight bearing right upper extremity 3. Ice when necessary. Do not exceed 20 minutes per hour with ice pack. 4. Maintain sling to right upper extremity until seen at first follow up appointment. 5. Pain meds and anticoagulants per prescription. 6. Pain medication has potential to cause constipation. Increase oral fluid and fiber intake. Contact primary care provider if you have not had a bowel movement within 48 hours after discharge. 7. No anti-inflammatory medication until discussed at first post operative visit, this including Motrin, Aleve, Mobic, Diclofenac. 8. Follow up in office at 2 weeks postop with Sanjay Yoon PA-C / Rob Yadav PA-C 9. Follow up with your primary care doctor 7-10 days after discharge. 10. Contact [facility] with any questions, . keep incision clean, dry, intact. While showering, cover steri-strips with Saran wrap. Keep steri-strips on until follow-up appointment in 2 weeks
--- NOTE | 2023-09-05 12:26 | P.PN ---
Subjective Progress Note Date: 09/05/23 Principal diagnosis: right severe glenohumeral joint osteoarthrosis patient was seen at bedside this morning sitting up in the recumbent position with dressing and sling present to right upper extremity. patient says he has remained several times since surgery yesterday without issue. Patient says he has not had bowel movement yet, however, patient says he has been passing gas. Patient says he is looking reported to go home later today. Patient denies any significant pain to the right shoulder. Patient says medication does help control pain somewhat. Patient denies chest pain, fever, shortness of breath, nausea, vomiting, change in vision, loss of bowel/bladder control. Objective - Vital Signs Vital signs: Vital Signs Temp 97.9 F 09/05/23 06:04 Pulse 86 09/05/23 06:04 Resp 18 09/05/23 06:04 BP 117/70 09/05/23 06:04 Pulse Ox 95 09/05/23 06:04 FiO2 Intake & Output 09/04/23 09/05/23 09/05/23 18:59 06:59 18:59 Intake Total 2331 900 Output Total 150 Balance 2181 900 Weight 93.3 kg Intake: IV 1851 Oral 480 900 Output: Estimated Blood Loss 150 Other: Voiding Method Toilet Urinal # Voids 2 - Exam right upper extremity: Incision is clean, dry, and intact. The bulky dressing is in good condition. There is minimal soft tissue swelling and ecchymosis surrounding the medial and lateral aspects of the incision. Calf is soft, no tenderness with palpation. Plantar flexion, dorsiflexion, EHL, FHL are intact. Sensory exam to light touch throughout the extremity is intact, dorsal pedis pulses 2+. - Labs CBC & Chem 7: 09/04/23 16:44 Labs: Abnormal Lab Results - Last 24 Hours (Table) 09/04/23 Range/Units 16:44 WBC 11.2 H (3.8-10.6) k/uL MCHC 30.9 L (31.0-37.0) g/dL Neutrophils # 10.2 H (1.3-7.7) k/uL Lymphocytes # 0.7 L (1.0-4.8) k/uL Assessment and Plan Assessment: 1. right severe glenohumeral joint osteoarthrosis - Postoperative day 1 status post right total shoulder arthroplasty Plan: 1. right severe glenohumeral joint osteoarthrosis - right total shoulder art hroplasty performed yesterday, 09/04/2023. Patient stable at bedside this morning was sitting present to right upper extremity. Discharge home today. 2. appreciate medical management 3. Pain management - oxycodone; Flexeril 4. DVT prophylaxis - aspirin 5. GI prophylaxis - senna 6. PT/OT - nonweightbearing right upper extremity. Maintain right upper extremity in sling 7. encourage incentive spirometer use 8. Discharge planning - home today Time with Patient: Less than 30
--- NOTE | 2023-09-05 22:09 | P.PN ---
Progress Note - Text Progress Note Date: 09/05/23 - Chief Complaint Right shoulder surgery - History of Present Illness This is a pleasant 53-year-old patient who follows with Dr. Emeli Alvarez. Chronic stable medical condition include hypertension, restless leg syndrome, osteoarthritis, enuresis for which she takes DDAVP, Depakote for bipolar and Seroquel for insomnia. Patient has undergone repeat right total shoulder arthroplasty. Prior surgery was about 5 years ago. Postprocedure right arm in a sling. Pain is controlled. No nausea vomiting did tolerate some supper. Denies any cardiac history. Patient's fianc is in the room. Sitting up in bed. September 04: Sitting up in bed. Comfortable. Pain controlled. Did tolerate his diet. Questions answered. Social history: Lives with his fiance Margarita. Patient is on Social Security. Just to tobacco and does marijuana. Physical examination: VITAL SIGNS: 97.9, 86, 18, 117/70, 95% room air GENERAL: BMI 26.4, sitting bed awake not in distress. EYES: Pupils equal. Conjunctiva celeste l. HEENT: External appearance of nose and ears normal, oral cavity grossly normal. NECK: JVD not raised; masses not palpable. HEART: First and second heart sounds are normal; no edema. LUNGS: Respiratory rate normal; clear to auscultation. ABDOMEN: Soft, nontender, liver spleen not palpable, no masses palpable. PSYCH: Alert and oriented x3; mood and affect celeste l. MUSCULOSKELETAL:No Clubbing/cyanosis;muscles-grossly intact. Right arm in a sling. Dressing on the right shoulder INVESTIGATIONS, reviewed in the clinical context: September 04, 2023: White count 9.2 hemoglobin 13.2 platelets 198 June 07, 2021: White count 6.3 hemoglobin 14.8 potassium 4.5 creatinine 0.8 Assessment plan: -Right total shoulder arthroplasty Right arm in a sling -Restless leg syndrome Requip XL 2 mg nightly -Essential hypertension Amlodipine/benazepril/5-ten 1 tablet nightly -Chronic insomnia Seroquel 12 mg nightly -Bipolar disorder Depakote 1500 mg nightly -enuresis DDAVP 0.2 mg nightly Discussed with patient and fianc. Follow-up with PCP Thank you Dr. Mullins Past Medical History Past Medical History: Hypertension, Osteoarthritis (OA) Additional Past Medical History / Comment(s): RLS, rt shoulder pain, History of Any Multi-Drug Resistant Organisms: None Reported Past Surgical History: Adenoidectomy, Joint Replacement, Orthopedic Surgery, Tonsillectomy Additional Past Surgical History / Comment(s): right knee replaced x 3. RT SHOULDER SX 05/2017 Past Anesthesia/Blood Transfusion Reactions: No Reported Reaction Past Psychological History: Bipolar Smoking Status: Never smoker Past Alcohol Use History: Occasional Additional Past Alcohol Use History / Comment(s): DOES NOT SMOKE -chewS tobacco FOR 25 years- Past Drug Use History: Marijuana Additional Drug Use History / Comment(s): smokes marijauna. pt aware not to use 24 hrs before procedure
== END 2023-09-05 13:06 | disposition home or self-care (01) ==
LOC: OR 08:29 → 4SSUR 14:56 → OR 09-05 13:06
PROVIDERS: ATTEND Orthopaedic Surgery
DX: M19.011 Primary osteoarthritis, right shoulder (principal); G89.18 Other acute postprocedural pain; I10 Essential (primary) hypertension; F31.9 Bipolar disorder, unspecified; G25.81 Restless legs syndrome; F51.04 Psychophysiologic insomnia; Z95.0 Presence of cardiac pacemaker; Z79.899 Other long term (current) drug therapy; Z88.0 Allergy status to penicillin; Z88.5 Allergy status to narcotic agent; F17.220 Nicotine dependence, chewing tobacco, uncomplicated
CPT/HCPCS: 23472; 64415; 85025; 73020; C1713; C1776; J2250; J0330; J1100; J2710; J0690 ×3; J2405; J3010; J2795; J2704; J2371; 64447